=== PATIENT | female | born 1950 | race Caucasian/White ===

== ENCOUNTER → 2020-07-11 | Outpatient (CLI) | payer MEDICARE ==
--- NOTE | 2020-07-11 10:29 | Diagnostic Imaging Report ---
PROCEDURE: US Hepatic (Liver). TECHNIQUE: Multiple real-time grayscale images were obtained over the right upper quadrant in various projections. INDICATION: Right upper quadrant pain. Liver is normal in size at 14 cm. No discrete liver mass is detected. The portal vein is patent and shows normal direction of flow. Gallbladder surgically absent. No biliary duct dilatation is seen. Pancreas is unremarkable. IVC appears to be patent. Aorta is obscured by bowel gas. Right kidney is without calculi or hydronephrosis. There is no ascites. IMPRESSION: Status post cholecystectomy. No acute feature is detected. Dictated by: Dictated on workstation # [id number]
== END ==
LOC: RAD 08:15
PROVIDERS: ATTEND Family Medicine
DX: R10.11 Right upper quadrant pain (principal); Z90.49 Acquired absence of other specified parts of digestive tract
CPT/HCPCS: 76705

== ENCOUNTER → 2020-08-07 | Outpatient (CLI) | payer MEDICARE | LOC: LABNPT 06:23 | PROVIDERS: ATTEND Family Medicine | DX: Z01.812 Encounter for preprocedural laboratory examination (principal); Z20.822 Contact with and (suspected) exposure to COVID-19 | CPT/HCPCS: 87635 ==

== ENCOUNTER → 2020-08-27 | Outpatient (CLI) | payer MEDICARE ==
--- NOTE | 2020-08-27 16:36 | Diagnostic Imaging Report ---
PROCEDURE: US left lower extremity venous. TECHNIQUE: Multiple real-time grayscale images were obtained over the left lower extremity in various projections. Additional duplex Doppler and color Doppler images were also obtained. INDICATION: Left leg pain. FINDINGS: There is no evidence of left lower extremity DVT. Left lower extremity deep venous system shows normal compressibility with normal response to augmentation and Valsalva. No fluid collection or mass is detected. IMPRESSION: No evidence of left lower extremity DVT. Dictated by: Dictated on workstation # [id number]
== END ==
LOC: RAD 15:30
PROVIDERS: ATTEND Family Medicine
DX: M79.605 Pain in left leg (principal); R22.43 Localized swelling, mass and lump, lower limb, bilateral
CPT/HCPCS: 36415; 85379; 85652

== ENCOUNTER → 2021-01-06 | Outpatient (CLI) | payer MEDICARE ==
[2021-01-06 14:20] LABS: HEMATOCRIT 39 % (35-52); HEMOGLOBIN 12.6 g/dL (11.5-16.0); MEAN CORPUSCULAR HEMOGLOBIN 29 pg (25-34); MEAN CORPUSCULAR HGB CONC 33 g/dL (32-36); MEAN CORPUSCULAR VOLUME 90 fL (80-99); MEAN PLATELET VOLUME 9.8 fL (9.0-12.2); PLATELET COUNT 232 10^3/uL (130-400); WHITE BLOOD COUNT 8.9 10^3/uL (4.3-11.0)
--- NOTE | 2021-01-06 14:42 | Diagnostic Imaging Report ---
INDICATION: Cough and shortness of air. COMPARISON: None. FINDINGS: Frontal and lateral views of the chest demonstrate normal heart size and pulmonary vascularity. The lungs are clear. There are no signs of infiltrate, pleural effusions, or pneumothoraces. The visualized osseous structures show no acute abnormalities. IMPRESSION: No acute process. No signs of infiltrates, effusions, or pneumothoraces. Dictated by: Dictated on workstation # [id number]
== END ==
LOC: RAD 13:47
PROVIDERS: ATTEND Family Medicine
DX: R05.9 Cough, unspecified (principal); R06.02 Shortness of breath; Z20.822 Contact with and (suspected) exposure to COVID-19
CPT/HCPCS: 36415; 71046; 85027; 86738

== ENCOUNTER → 2021-07-09 | Outpatient (CLI) | payer MEDICARE ==
--- NOTE | 2021-07-09 13:03 | Diagnostic Imaging Report ---
INDICATION: CERVICAL RADICULOPATHY M54.12, L SHOULDER PAIN M25.512. TECHNIQUE: Three views of the left shoulder. CORRELATION STUDY: None. FINDINGS: No acute fracture or dislocation. Mild hypertrophic change about the acromioclavicular joint. There is also small spur-like formation of the inferior aspect of the humeral head. Mild narrowing at the glenohumeral articulation. The visualized soft tissues are unremarkable. IMPRESSION: Negative for acute bony abnormality about the shoulder. Mild degenerative changes of the left shoulder. Dictated by: Dictated on workstation # [id number]
--- NOTE | 2021-07-09 13:05 | Diagnostic Imaging Report ---
INDICATION: Pain in neck radiating into left arm with numbness. TECHNIQUE: AP, lateral, and odontoid views cervical spine.. CORRELATION STUDY: None FINDINGS: Cervical spine alignment demonstrates trace anterolisthesis of C6 on C7 and C4 on C5. Alignment is otherwise anatomic. Prevertebral body heights are maintained. Various degrees of mild to moderate disc space narrowing. Slightly more prominent at the C3-C4 and C5-C6 levels. Minimal endplate osteophyte formation is noted. Odontoid is unremarkable. Lateral masses of C1 and C2 with mild narrowing. Scattered areas of mild hypertrophic facet arthropathy. Prevertebral soft tissues are unremarkable. IMPRESSION: Mildly advanced multilevel cervical spondylosis. Dictated by: Dictated on workstation # [id number]
== END ==
LOC: RAD 11:41
PROVIDERS: ATTEND Family Medicine
DX: M19.012 Primary osteoarthritis, left shoulder (principal); M47.22 Other spondylosis with radiculopathy, cervical region
CPT/HCPCS: 72040; 73030

== ENCOUNTER → 2021-07-15 | Outpatient (CLI) | payer MEDICARE ==
--- NOTE | 2021-07-15 14:04 | Diagnostic Imaging Report ---
INDICATION: Right hand pain and swelling. Time of Exam: 11:36 AM Postop changes with anchors adjacent to the proximal 1st and 2nd metacarpals are noted. Metacarpals are intact. The phalanges appear intact. Carpus demonstrates some degenerative changes at the 1st CMC and triscaphe joints but no fractures are seen. Alignment is normal. IMPRESSION: Postsurgical changes. No acute abnormality is detected. Dictated by: Dictated on workstation # [id number]
--- NOTE | 2021-07-15 14:07 | Diagnostic Imaging Report ---
INDICATION: Right hand pain and swelling. Time of Exam: 11:38 AM No prior studies are available for comparison. Postoperative changes are noted with anchors noted in the region of the proximal 1st and 2nd metacarpals. There are some degenerative changes at the 1st CMC as well as triscaphe joints. The distal radius and ulna are intact. Carpus is intact. No fractures are seen. IMPRESSION: Chronic and postsurgical changes. No acute bony abnormality is detected. Dictated by: Dictated on workstation # [id number]
== END ==
LOC: RAD 10:49
PROVIDERS: ATTEND Family Medicine
DX: M25.531 Pain in right wrist (principal); M79.641 Pain in right hand; M79.89 Other specified soft tissue disorders
CPT/HCPCS: 73110; 73130

== ENCOUNTER → 2021-07-16 | Outpatient (CLI) | payer MEDICARE ==
--- NOTE | 2021-07-16 16:05 | Diagnostic Imaging Report ---
REASON FOR EXAM: Venous stasis. Edema. COMPARISON: None. TECHNIQUE: Segmental pressures and Doppler study with ankle brachial indices and toe brachial indices was performed at rest. Systolic blood pressure in the right brachial artery is 110 mm of Hg Systolic blood pressure in the left brachial artery is 113 mm of Hg Systolic blood pressure in the right posterior tibial artery is 127 mm of Hg The ankle brachial index (ELIZABETH) on the right side is 1.12 at rest. Systolic blood pressure in the left posterior tibial artery is 133 mm of Hg The ankle brachial index (ELIZABETH) on the left side is 1.18 at rest. Systolic blood pressure in the right great toe is 119 mm of Hg The toe brachial index (TBI) on the right side is 1.05 at rest. Systolic blood pressure in the left great toe is 90 mm of Hg The toe brachial index (TBI) on the left side is 0.8 at rest. The waveform in the right posterior tibial artery is biphasic The waveform in the right dorsalis pedis artery is biphasic The waveform in the left posterior tibial artery is biphasic The waveform in the left dorsalis pedis artery is monophasic Disease Severity and Ankle-Brachial Index (ELIZABETH) ([facility] Vascular Laboratory Criteria) [place] [facility] Proc. September 2007;83(8):[id number] [email or web address] Disease severity Normal: At rest >0.9 After exercise >0.9 Mild: At rest 0.8-0.9 After exercise 0.5-0.9 Moderate: At rest 0.5-0.79 After exercise 0.15-0.49 Severe: At rest <0.5 After exercise <0.15 Disease Severity and Toe Brachial Index (TBI) 0.64 +/- .20 limbs normal 0.52 =/- .20 claudication in limbs 0.23 =/- .19 limbs with ulcers or ischemic rest pain IMPRESSION: 1. Normal ABIs and TBIs bilaterally. 2. Monophasic waveform in the left dorsalis pedis artery. Dictated by: Dictated on workstation # [id number]
== END ==
LOC: RAD 09:26
PROVIDERS: ATTEND Family Medicine
DX: M79.641 Pain in right hand (principal); M25.531 Pain in right wrist; M79.89 Other specified soft tissue disorders; R60.0 Localized edema
CPT/HCPCS: 93922

== ENCOUNTER → 2021-07-24 | Outpatient (CLI) | payer MEDICARE ==
--- NOTE | 2021-07-24 16:02 | Diagnostic Imaging Report ---
Indication: Left wrist pain post fall AP, oblique, and lateral views of the left wrist are obtained. FINDINGS / IMPRESSION: No fracture or acute bony abnormality is seen. There are degenerative changes of the radiocarpal joint and triscaphe joint with degenerative change of partial fusion of the first carpometacarpal joint. Dictated by: Dictated on workstation # [id number]
--- NOTE | 2021-07-24 16:05 | Diagnostic Imaging Report ---
Indication: Left hand pain after a fall. AP, oblique, and lateral views of the left hand are obtained. No fracture or acute bony abnormality is seen. There are diffuse degenerative changes throughout the interphalangeal joints. There are degenerative changes of the first MCP joint, the first carpometacarpal joint, the radiocarpal joint and mid carpal joint. IMPRESSION: Diffuse degenerative changes with no acute abnormality of the left hand. Dictated by: Dictated on workstation # [id number]
== END ==
LOC: RAD 12:31
PROVIDERS: ATTEND Family Medicine
DX: M19.032 Primary osteoarthritis, left wrist (principal); M19.042 Primary osteoarthritis, left hand
CPT/HCPCS: 73110; 73130

== ENCOUNTER → 2021-07-30 | Outpatient (CLI) | payer MEDICARE ==
--- NOTE | 2021-07-30 14:54 | Diagnostic Imaging Report ---
INDICATION: Left elbow pain. EXAMINATION: Left elbow, 3 views, on 07/30/2021. FINDINGS: There is mild elevation of the anterior fat pad suggesting an underlying fracture. No definite fracture lines are seen but followup is recommended. There is no evidence for dislocation. IMPRESSION: Small joint effusion suggesting an underlying fracture which is not visualized today. A short-term interval followup is recommended. Dictated by: Dictated on workstation # [id number]
== END ==
LOC: RAD 13:55
PROVIDERS: ATTEND Family Medicine
DX: M25.422 Effusion, left elbow (principal); M25.522 Pain in left elbow
CPT/HCPCS: 73080

== ENCOUNTER → 2021-11-28 | Outpatient (CLI) | payer MEDICARE ==
--- NOTE | 2021-11-28 15:26 | Diagnostic Imaging Report ---
INDICATION: Routine screening. COMPARISON: 04/02/2021. TECHNIQUE: 2D and 3D bilateral diagnostic mammography was performed with CAD. BB markers were placed at the areas of pain in the upper outer aspects of both breasts posteriorly. FINDINGS: Scattered fibroglandular densities are noted bilaterally. No mass or malignant-appearing microcalcifications are seen. There are benign calcifications bilaterally. The axillae are unremarkable. IMPRESSION: No mammographic features suspicious for malignancy are identified. ACR BI-RADS Category 2: Benign findings. Result letter will be mailed to the patient. Note: At least 10% of breast cancer is not imaged by mammography. Dictated by: Dictated on workstation # [id number]
== END ==
LOC: RAD 13:45
PROVIDERS: ATTEND Family Medicine
DX: Z12.31 Encounter for screening mammogram for malignant neoplasm of breast (principal); N64.4 Mastodynia
CPT/HCPCS: 77066; G0279; 77062

== ENCOUNTER → 2022-02-25 | Outpatient (CLI) | payer MEDICARE ==
[2022-02-25 08:19] LABS: BASOPHILS # (AUTO) 0.1 10^3/uL (0.0-0.1); BASOPHILS % (AUTO) 1 % (0-10); EOSINOPHILS # (AUTO) 0.1 10^3/uL (0.0-0.3); EOSINOPHILS % (AUTO) 2 % (0-10); HEMATOCRIT 42 % (35-52); HEMOGLOBIN 13.7 g/dL (11.5-16.0); LYMPHOCYTES # (AUTO) 1.8 10^3/uL (1.0-4.0); LYMPHOCYTES % (AUTO) 31 % (12-44); MEAN CORPUSCULAR HEMOGLOBIN 30 pg (25-34); MEAN CORPUSCULAR HGB CONC 33 g/dL (32-36); MEAN CORPUSCULAR VOLUME 91 fL (80-99); MEAN PLATELET VOLUME 10.3 fL (9.0-12.2); MONOCYTES # (AUTO) 0.4 10^3/uL (0.0-1.0); MONOCYTES % (AUTO) 7 % (0-12); NEUTROPHILS # (AUTO) 3.5 10^3/uL (1.8-7.8); NEUTROPHILS % (AUTO) 60 % (42-75); PLATELET COUNT 209 10^3/uL (130-400); WHITE BLOOD COUNT 5.8 10^3/uL (4.3-11.0)
[2022-02-25 08:40] LABS: EOSINOPHILS % (MANUAL) 2 %; LYMPHOCYTES % (MANUAL) 31 %; MONOCYTES % (MANUAL) 9 %; NEUTROPHILS % (MANUAL) 58 %; RBC MORPH NORMAL
[2022-02-25 08:44] LABS: BILIRUBIN,TOTAL 0.5 MG/DL (0.1-1.0); CALCIUM 9.5 MG/DL (8.5-10.1); CREATININE SERUM 0.87 MG/DL (0.60-1.30); POTASSIUM 3.7 MMOL/L (3.6-5.0); TOTAL PROTEIN 6.6 GM/DL (6.4-8.2)
[2022-02-25 09:05] LABS: FREE T4 (FREE THYROXINE) 1.02 NG/DL (0.70-1.48)
== END ==
LOC: LAB 07:45
PROVIDERS: ATTEND Nurse Practitioner Family
DX: M32.9 Systemic lupus erythematosus, unspecified (principal); Z13.220 Encounter for screening for lipoid disorders
CPT/HCPCS: 36415; 80053; 80061; 84439; 84443; 85007; 85027; 86141